=== PATIENT | male | born 1950 | race Caucasian/White ===

== ENCOUNTER → 2018-09-30 | Day surgery (SDC) | payer OTHER ==
[~2018-09-30] VITALS: Wt 88.5 kg
[~2018-09-30] MED LIST: ASPIR-LOW81 MG PO; Aggrenox 25 MG-1 CER PO; CHANTIX1 M1 PO; COUMADIN PO; COUMADIN2.5 MG PO; COUMADIN5 MG PO; ELIQUIS5 M1 PO; PRAVACHOL40 MG PO; PROAIR HFA8.5 GM INH; SIMVASTATIN40 MG PO; TOPROL-XL50 MG PO
--- NOTE | ~2018-09-30 | O ---
[place], [place] OPERATIVE NOTE NAME: DEON GILL UNIT #: [id number] ROOM: DOCTOR: JEFFERSON MARIE MD BIRTHDATE: [birth year] DOS: 09/30/2018 PREOPERATIVE DIAGNOSIS: Cataract, right eye. POSTOPERATIVE DIAGNOSIS: Cataract, right eye. OPERATION: Extracapsular cataract extraction by phacoemulsification with posterior chamber intraocular lens implantation, right eye. ANESTHESIA: Monitored standby. OPERATIVE FINDINGS AND PROCEDURE: 2% Xylocaine topical anesthetic gel was applied to the eye in the preop area. The patient was taken to the operating room and prepped and draped in the standard fashion for sterile intraocular surgery. A time out procedure was performed verifying correct patient, correct site and corrects lens with Elida Marie M.D. The operating microscope was swung into position and the lid speculum was inserted. Using a Abiola paracentesis blade, a paracentesis was made through clear cornea. A mixture of preservative-free lidocaine 4% and preservative-free epinephrine 1:1000 in balanced salt solution was injected into the anterior chamber. Viscoelastic was used to fill the anterior chamber. Using a metal keratome a 2.4 mm self-sealing clear corneal cataract incision was made temporally at the limbus. Using a pre-bent 25 gauge cystotome needle, a standard continuous curvilinear capsulorrhexis was performed. The anterior capsule was removed with forceps. The lens nucleus was hydrodissected and phacoemulsified in the posterior chamber. Cortical material was removed with the irrigation aspiration hand piece and the posterior capsule was then polished with a curet under irrigation. The posterior chamber and capsular bag were filled with viscoelastic. A posterior chamber intraocular lens manufactured by: [employer], Model # [id number], and 19.0 diopters in strength were then inserted into the posterior chamber and within the capsular bag using the lens cartridge and injector system. Viscoelastic was removed using the irrigation aspiration handpiece. The anterior chamber was filled with balanced salt solution through the paracentesis. Both the paracentesis site and cataract incisions were hydrated with BSS and verified to be water-tight and self-sealing. Cefuroxime 1 mg/0.1 mL was injected into the anterior chamber through the paracentesis site. The incision checked to be water-tight using a Weck-Birdie sponge. The integrity of the cataract wound and ocular tension were checked. Lid speculum and drapes were removed. The patient was transferred from the operating room to the recovery room in satisfactory condition. [place], [place] OPERATIVE NOTE NAME: JAIRODEON Vera UNIT #: [id number] ROOM: DOCTOR: JEFFERSON MARIE MD BIRTHDATE: [birth year] JEFFERSON MARIE MD CM:OPRECORD:OPERATIVE NOTE 1212 1225 JEFFERSON MARIE MD 09/30/18 1225 interface
[2018-09-30 09:30] VITALS: BP 139/86
[2018-09-30 11:27] VITALS: BP 125/90
== END | disposition home or self-care (01) ==
LOC: SDC 09-25 09:30
DX: H25.811 Combined forms of age-related cataract, right eye (principal); I48.91 Unspecified atrial fibrillation; J45.909 Unspecified asthma, uncomplicated; F17.210 Nicotine dependence, cigarettes, uncomplicated; Z79.899 Other long term (current) drug therapy; Z95.0 Presence of cardiac pacemaker; Z98.890 Other specified postprocedural states; Z82.49 Family history of ischemic heart disease and other diseases of the circulatory system; Z82.3 Family history of stroke

== ENCOUNTER → 2022-11-27 | Day surgery (SDC) | payer MEDICARE, OTHER ==
[~2022-11-27] VITALS: Ht 180.3 cm; Wt 90.7 kg
[~2022-11-27] MED LIST changes: +LOSARTAN POTASS25 M1 PO; +METOPROLOL25 MG PO; +ROSUVASTATIN CA20 MG PO
[2022-11-27 08:30] VITALS: BP 131/76
[2022-11-27 12:36] VITALS: BP 140/77
[2022-11-27 12:49] VITALS: BP 109/82
[2022-11-27 13:02] VITALS: BP 138/79
== END | disposition home or self-care (01) ==
LOC: SDC 11-22 12:30
PROVIDERS: ATTEND Ophthalmology
DX: H25.12 Age-related nuclear cataract, left eye (principal); I10 Essential (primary) hypertension; E78.00 Pure hypercholesterolemia, unspecified; I25.2 Old myocardial infarction; Z87.891 Personal history of nicotine dependence; Z98.890 Other specified postprocedural states